=== PATIENT | male | born 1975 | race Caucasian/White ===

== ENCOUNTER → 2018-10-06 | Outpatient (CLI) | payer OTHER ==
--- NOTE | 2018-10-06 16:26 | RAD ---
2 views lumbar spine without comparison for low back pain and bilateral feet pain, diabetes, disability determination, lower back surgery makes it hard to sleep or left. FINDINGS: There is mild straightening of the normal lumbar lordosis. Mild narrowing of L4-5 and more moderate narrowing at L5-S1 is seen. No alignment abnormality. Multilevel moderate facet arthrosis at the lower lumbar levels. Moderate atherosclerosis. No fracture or acute osseous or alignment abnormality. IMPRESSION: 1. Multilevel degenerative disc disease involving the lower lumbar spine as described. No acute osseous abnormality. Electronically signed by: Tad Pop MD (10/06/2018 4:22 PM) [id number]
== END | disposition home or self-care (01) ==
LOC: RAD 09:37
PROVIDERS: ATTEND Surgery
DX: M51.36 Other intervertebral disc degeneration, lumbar region (principal); M47.896 Other spondylosis, lumbar region; M40.46 Postural lordosis, lumbar region; M48.061 Spinal stenosis, lumbar region without neurogenic claudication; M48.07 Spinal stenosis, lumbosacral region; I70.0 Atherosclerosis of aorta
CPT/HCPCS: 72100